=== PATIENT | male | born 1995 | race Caucasian/White ===

== ENCOUNTER 2016-12-23 09:18 | Emergency (ER) | payer OTHER ==
[~2016-12-23] VITALS: Ht 175.2 cm; Wt 59.0 kg
[~2016-12-23 09:18] MED LIST: ANUSOL-HC25 MG R; AUGMENTIN 500500 MG PO; BENADRYL25 MG PO; CORTISPORIN 1%-10 M1 OT; KEFLEX250 MG PO; KEFLEX500 M1 PO; KEFLEX500 MG PO; LATU40TA1 PO; MOTRIN100 MG/5 M PO; MOTRIN400 MG PO; MOTRIN800 MG PO; Motrin,Rufen800 MG PO; NKHM; NORFLEX100 MG PO; PHENERGAN12.5 M1 PO; PREDNICOT20 MG PO; TYLENOL W/ CODE30 ML PO; TYLENOL W/CODEI1 TA2 PO; ZANTAC 150150 MG PO; ZANTAC150 MG PO; ZOFRAN ODT4 MG SL
[2016-12-23 11:28] VITALS: BP 113/55
[2016-12-23] MEDS ORDERED: CYCLOBENZAPRINE10 MG PO (11:45)
[2016-12-23] MEDS ORDERED: NAPROSYN500 MG PO (11:45)
== END 2016-12-23 12:21 | disposition home or self-care (01) ==
LOC: ED 09:18
DX: S29.011A Strain of muscle and tendon of front wall of thorax, initial encounter (principal); F17.200 Nicotine dependence, unspecified, uncomplicated; W20.8XXA Other cause of strike by thrown, projected or falling object, initial encounter; Y93.89 Activity, other specified; Y92.9 Unspecified place or not applicable; Y99.9 Unspecified external cause status

== ENCOUNTER 2017-03-23 19:35 | Emergency (ER) | payer OTHER ==
[~2017-03-23] VITALS: Ht 175.2 cm; Wt 56.7 kg
[~2017-03-23 19:35] MED LIST changes: +CYCLOBENZAPRINE10 MG PO; +NAPROSYN500 MG PO
[2017-03-23 19:40] VITALS: BP 130/77
[2017-03-23] MEDS ORDERED: PENICILLIN VK500 MG PO (19:44)
[2017-03-23] MEDS ORDERED: Peridex 473 ML473 ML PO (19:44)
[2017-03-23] MEDS ORDERED: LIDOCAINE HCL100 M1 MM (19:44)
[2017-03-23] MEDS ORDERED: NAPROSYN500 MG PO (19:44)
== END 2017-03-23 19:49 | disposition home or self-care (01) ==
LOC: ED 19:35
DX: K02.9 Dental caries, unspecified (principal); R03.0 Elevated blood-pressure reading, without diagnosis of hypertension; F17.200 Nicotine dependence, unspecified, uncomplicated

== ENCOUNTER 2018-04-30 17:20 | Emergency (ER) | payer SELFPAY ==
[~2018-04-30] VITALS: Ht 175.2 cm; Wt 61.2 kg
[~2018-04-30 17:20] MED LIST changes: +LIDOCAINE HCL100 M1 MM; +PENICILLIN VK500 MG PO; +Peridex 473 ML473 ML PO
[2018-04-30 17:23] VITALS: BP 113/74
[2018-04-30] MEDS ORDERED: PREDNISONE20 M1 PO (17:57)
[2018-04-30] MEDS ORDERED: ZITHROMAX250 MG PO (17:58)
[2018-04-30] MEDS ORDERED: ALBUTEROL2.5 MG/0.5 INH (18:08)
== END 2018-04-30 18:10 | disposition home or self-care (01) ==
LOC: ED 17:20
DX: J40 Bronchitis, not specified as acute or chronic (principal)

== ENCOUNTER 2019-05-14 17:44 | Emergency (ER) | payer OTHER ==
[~2019-05-14] VITALS: Ht 175.2 cm; Wt 59.0 kg
[~2019-05-14 17:44] MED LIST changes: +ALBUTEROL2.5 MG/0.5 INH; +PREDNISONE20 M1 PO; +ZITHROMAX250 MG PO
[2019-05-14 17:46] VITALS: BP 121/73
[2019-05-14] MEDS ORDERED: AUGMENTIN 875-875 MG PO (18:07)
== END 2019-05-14 19:17 | disposition home or self-care (01) ==
LOC: ED 17:44
DX: S02.5XXA Fracture of tooth (traumatic), initial encounter for closed fracture (principal); Z79.899 Other long term (current) drug therapy; W22.8XXA Striking against or struck by other objects, initial encounter; Y93.89 Activity, other specified; Y92.89 Other specified places as the place of occurrence of the external cause; Y99.8 Other external cause status

== ENCOUNTER 2019-09-23 20:31 | Emergency (ER) | payer SELFPAY ==
[~2019-09-23] VITALS: Ht 175.2 cm; Wt 59.0 kg
[~2019-09-23 20:31] MED LIST changes: +AUGMENTIN 875-875 MG PO
[2019-09-23 20:32] VITALS: BP 112/61
[2019-09-23] MEDS ORDERED: AUGMENTIN 875-875 MG PO (22:37)
== END 2019-09-23 22:36 | disposition home or self-care (01) ==
LOC: ED 20:31
DX: S01.23XA Puncture wound without foreign body of nose, initial encounter (principal); S01.419A Laceration without foreign body of unspecified cheek and temporomandibular area, initial encounter; J45.909 Unspecified asthma, uncomplicated; K21.9 Gastro-esophageal reflux disease without esophagitis; W54.0XXA Bitten by dog, initial encounter; Y93.89 Activity, other specified; Y92.89 Other specified places as the place of occurrence of the external cause; Y99.8 Other external cause status

== ENCOUNTER 2019-12-05 13:40 | Emergency (ER) | payer SELFPAY ==
[~2019-12-05] VITALS: Ht 182.8 cm; Wt 54.4 kg
[2019-12-05 13:45] VITALS: BP 107/71
[2019-12-05] MEDS ORDERED: TYLENOL325 M1 PO (14:08)
[2019-12-05] MEDS ORDERED: AUGMENTIN 875875 MG PO (14:08)
[2019-12-05] MEDS ORDERED: NAPROSYN500 MG PO (14:08)
== END 2019-12-05 14:12 | disposition home or self-care (01) ==
LOC: ED 13:40
DX: H66.92 Otitis media, unspecified, left ear (principal); J45.909 Unspecified asthma, uncomplicated

== ENCOUNTER 2022-06-07 16:06 | Emergency (ER) | payer SELFPAY ==
[~2022-06-07] VITALS: Ht 175.2 cm; Wt 62.1 kg
[~2022-06-07 16:06] MED LIST changes: +AUGMENTIN 875875 MG PO; +TYLENOL325 M1 PO
[2022-06-07 16:16] VITALS: BP 131/70
== END 2022-06-07 19:40 | disposition home or self-care (01) ==
LOC: ED 16:06
DX: S83.8X1A Sprain of other specified parts of right knee, initial encounter (principal); W01.198A Fall on same level from slipping, tripping and stumbling with subsequent striking against other object, initial encounter; Y93.01 Activity, walking, marching and hiking; Y92.89 Other specified places as the place of occurrence of the external cause; Y99.9 Unspecified external cause status

== ENCOUNTER 2022-07-01 13:30 | Emergency (ER) | payer SELFPAY ==
[~2022-07-01] VITALS: Wt 62.1 kg
[2022-07-01 13:35] VITALS: BP 120/72
== END 2022-07-01 14:10 | disposition home or self-care (01) ==
LOC: ED 13:30
DX: T63.444A Toxic effect of venom of bees, undetermined, initial encounter (principal); L53.0 Toxic erythema; F17.200 Nicotine dependence, unspecified, uncomplicated; Z79.2 Long term (current) use of antibiotics; Z79.899 Other long term (current) drug therapy; Z96.22 Myringotomy tube(s) status; Y92.89 Other specified places as the place of occurrence of the external cause

== ENCOUNTER 2022-08-15 14:10 | Emergency (ER) | payer SELFPAY ==
[~2022-08-15] VITALS: Ht 175.2 cm; Wt 63.5 kg
[2022-08-15 14:12] VITALS: BP 106/68
[2022-08-15] MEDS ORDERED: AMOXICILLIN500 M3 PO (14:26)
== END 2022-08-15 14:38 | disposition home or self-care (01) ==
LOC: ED 14:10
DX: K04.7 Periapical abscess without sinus (principal); Z96.22 Myringotomy tube(s) status; Z90.89 Acquired absence of other organs

== ENCOUNTER 2022-09-02 05:27 | Emergency (ER) | payer SELFPAY ==
[~2022-09-02 05:27] MED LIST changes: +AMOXICILLIN500 M3 PO
[2022-09-02 05:34] VITALS: BP 125/65
[2022-09-02] MEDS ORDERED: AMOXICILLIN500 M2 PO (06:30)
== END 2022-09-02 06:47 | disposition home or self-care (01) ==
LOC: ED 05:27
DX: K04.7 Periapical abscess without sinus (principal); Z90.89 Acquired absence of other organs

== ENCOUNTER 2022-09-06 18:23 | Emergency (ER) | payer SELFPAY ==
[~2022-09-06 18:23] MED LIST changes: +AMOXICILLIN500 M2 PO
== END 2022-09-06 19:00 | disposition left against medical advice (07) ==
LOC: ED 18:23
DX: Z53.21 Procedure and treatment not carried out due to patient leaving prior to being seen by health care provider (principal)

== ENCOUNTER 2022-09-10 16:15 | Emergency (ER) | payer BC ==
[~2022-09-10] VITALS: Ht 175.2 cm; Wt 63.5 kg
[2022-09-10 16:29] VITALS: BP 132/60
== END 2022-09-10 18:00 | disposition left against medical advice (07) ==
LOC: ED 16:15
DX: S09.90XA Unspecified injury of head, initial encounter (principal); Z90.89 Acquired absence of other organs; W22.8XXA Striking against or struck by other objects, initial encounter; Y93.89 Activity, other specified; Y92.89 Other specified places as the place of occurrence of the external cause; Y99.8 Other external cause status

== ENCOUNTER 2022-12-05 09:14 | Emergency (ER) | payer OTHER ==
[~2022-12-05] VITALS: Ht 175.2 cm; Wt 62.1 kg
[2022-12-05 09:28] VITALS: BP 119/84
[2022-12-05] MEDS ORDERED: CLINDAMYCIN HC300 MG PO (10:11)
[2022-12-05] MEDS ORDERED: IBU800 M2 PO (10:11)
== END 2022-12-05 10:59 | disposition home or self-care (01) ==
LOC: ED 09:14
DX: S62.634A Displaced fracture of distal phalanx of right ring finger, initial encounter for closed fracture (principal); S60.021A Contusion of right index finger without damage to nail, initial encounter; Z90.89 Acquired absence of other organs; W20.8XXA Other cause of strike by thrown, projected or falling object, initial encounter; Y93.89 Activity, other specified; Y92.89 Other specified places as the place of occurrence of the external cause; Y99.8 Other external cause status

== ENCOUNTER 2023-06-25 13:29 | Emergency (ER) | payer SELFPAY ==
[~2023-06-25] VITALS: Ht 175.2 cm; Wt 62.1 kg
[~2023-06-25 13:29] MED LIST changes: +CLINDAMYCIN HC300 MG PO; +IBU800 M2 PO
[2023-06-25 13:35] VITALS: BP 125/72
[2023-06-25] MEDS ORDERED: PENICILLIN VK500 MG PO (14:14)
== END 2023-06-25 15:03 | disposition home or self-care (01) ==
LOC: ED 13:29
DX: K04.7 Periapical abscess without sinus (principal); J45.909 Unspecified asthma, uncomplicated; Z90.89 Acquired absence of other organs; Z98.890 Other specified postprocedural states

== ENCOUNTER 2023-07-25 07:54 | Emergency (ER) | payer MEDICAID ==
[~2023-07-25] VITALS: Ht 175.2 cm; Wt 64.4 kg
[2023-07-25 08:09] VITALS: BP 120/72
[2023-07-25] MEDS ORDERED: Motrin,Rufen800 MG PO (08:17)
[2023-07-25] MEDS ORDERED: CLEOCIN HCL150 MG PO (08:17)
== END 2023-07-25 10:00 | disposition home or self-care (01) ==
LOC: ED 07:54
DX: Z90.89 Acquired absence of other organs (principal); Z96.22 Myringotomy tube(s) status; K08.89 Other specified disorders of teeth and supporting structures

== ENCOUNTER 2023-07-30 13:56 | Emergency (ER) | payer MEDICAID ==
[~2023-07-30] VITALS: Ht 175.2 cm; Wt 62.1 kg
[~2023-07-30 13:56] MED LIST changes: +CLEOCIN HCL150 MG PO
[2023-07-30 15:04] VITALS: BP 100/56
[2023-07-30] MEDS ORDERED: AMOXICILLIN500 M2 PO (16:37)
[2023-07-30] MEDS ORDERED: IBUPROFEN600 MG PO (16:37)
== END 2023-07-30 16:53 | disposition home or self-care (01) ==
LOC: ED 13:56
DX: K08.89 Other specified disorders of teeth and supporting structures (principal); Z79.2 Long term (current) use of antibiotics; Z79.899 Other long term (current) drug therapy; Z96.22 Myringotomy tube(s) status; Z90.89 Acquired absence of other organs

== ENCOUNTER 2023-09-22 16:33 | Emergency (ER) | payer MEDICAID ==
[~2023-09-22] VITALS: Ht 175.2 cm; Wt 62.1 kg
[~2023-09-22 16:33] MED LIST changes: +IBUPROFEN600 MG PO
[2023-09-22 16:46] VITALS: BP 128/78
== END 2023-09-22 18:30 | disposition home or self-care (01) ==
LOC: ED 16:33
DX: J06.9 Acute upper respiratory infection, unspecified (principal); J45.909 Unspecified asthma, uncomplicated; K21.9 Gastro-esophageal reflux disease without esophagitis; Z90.89 Acquired absence of other organs; Z98.890 Other specified postprocedural states; Z20.822 Contact with and (suspected) exposure to COVID-19

== ENCOUNTER 2023-09-25 18:06 | Emergency (ER) | payer MEDICAID ==
[~2023-09-25] VITALS: Ht 175.2 cm; Wt 62.1 kg
[2023-09-25 18:17] VITALS: BP 116/89
[2023-09-25] MEDS ORDERED: AMOX-CLAV 875-1 EACH PO (18:34)
== END 2023-09-25 18:50 | disposition home or self-care (01) ==
LOC: ED 18:06
DX: H66.92 Otitis media, unspecified, left ear (principal); Z79.2 Long term (current) use of antibiotics; Z79.899 Other long term (current) drug therapy; Z96.22 Myringotomy tube(s) status; Z90.89 Acquired absence of other organs

== ENCOUNTER 2025-07-27 10:14 | Emergency (ER) | payer MEDICAID ==
[~2025-07-27] VITALS: Ht 175.2 cm; Wt 62.1 kg
[~2025-07-27 10:14] MED LIST changes: +AMOX-CLAV 875-1 EACH PO
[2025-07-27 10:20] VITALS: BP 121/77
[2025-07-27] MEDS ORDERED: HYTONE 2.5% LOT2 OZ T (11:11)
== END 2025-07-27 11:36 | disposition home or self-care (01) ==
LOC: ED 10:14
DX: L23.7 Allergic contact dermatitis due to plants, except food (principal); Z90.89 Acquired absence of other organs